=== PATIENT | female | born 1990 | race Caucasian/White ===

== ENCOUNTER 2020-10-09 18:39 | Emergency (ER) | payer OTHER, SELFPAY ==
--- NOTE | ~2020-10-09 | XR_ITS ---
EXAMINATION: XR chest 2V DATE: 10/09/2020 19:03 INDICATION: Left-sided chest pain TECHNIQUE: PA and lateral views of the chest are obtained. COMPARISON: None available FINDINGS: The lungs are free of acute opacities. There is no pleural effusion or pneumothorax. The ca rdiomediastinal silhouette is normal. There is mild thoracic spondylosis. Surgical clips in the right upper quadrant are likely from prior cholecystectomy. IMPRESSION: 1. No acute cardiopulmonary abnormality. Reviewed, dictated and finalized at location A.
[2020-10-09 18:43] VITALS: BP 121/92; PULSE 89; RESP 18; TEMP 36.4; O2SAT 100
--- NOTE | 2020-10-09 18:46 | ECG_ITS ---
Measurements Intervals [place] Rate: 106 P: 34 CT: 133 QRS: 28 QRSD: 84 T: 20 QT: 323 QTc: 430 Interpretive Statements SINUS TACHYCARDIA ABNORMAL ECG Electronically Signed On 10-10-2020 7:11:02 CDT by Brice Lawrence D.O.
--- NOTE | 2020-10-09 19:01 | ED.CHESTPAIN ---
HPI - Chest Pain General Chief Complaint: Chest Pain Stated Complaint: chest and left rib pain Time Seen by Provider: 10/09/20 19:01 History of Present Illness HPI narrative: 30 yo female w/ h/o paroxysmal SVT presents to the ED for chest pain. 4 days of sharp left sided chest pain. Associated with SOB. Reports that she was seen at [facility] and told that she had a collapsed lung and could not be treated there because they do not have cardiologists. She then went to [facility] and told that her lung was not collapsed, but says that they did not address her pain. She was supposed to have an ablation procedure for her SVT, but she did not keep her appointment. He story does not seem to make very much sense. She let me look through her my chart and there is never any mention of a pneumothorax. She had a negative cardiac evaluation. Related Data Allergies Allergy/AdvReac Type Severity Reaction Status Date / Time naproxen Allergy Unknown Verified 10/09/20 20:59 Penicillins Allergy Hives Verified 10/09/20 19:56 Sulfa (Sulfonamide Allergy Hives Verified 10/09/20 19:56 Antibiotics) Review of Systems Review of Systems: All systems reviewed & are unremarkable except as noted in HPI and below Constitutional: Constitutional: Denies fever(s) Eyes: Eyes: Reports no additional eye complaints Cardiovascular: Cardiovascular: Reports chest pain and Denies radiating jaw, neck or arm pain Respiratory: Respiratory: Denies cough and Reports dyspnea Gastrointestinal: Gastrointestinal: Reports no additional gastrointestinal complaints Genitourinary: Genitourinary: Reports no additional female genitourinary complaints Neurologic: Reports dizziness Psychiatric: Psychiatric: Denies anxiety [facility] Past Medical History Medical History (Updated 10/22/20 @ 18:44 by Clinton Costa MD) SVT (supraventricular tachycardia) Exam Const: General: no acute distress and alert Orientation/consciousness: patient oriented x3 HENMT: Head: normal to inspection Neck: Neck: normal visual inspection Chest: Chest palpation & inspection: tenderness pectoral muscle on the left Resp: Effort & Inspection: normal respiratory effort Auscultation: clear to auscultation bilaterally Cardio: Rate: regular rate Rhythm: regular rhythm GI: GI Palp: Yes Soft to palpation and No Tenderness to palpation present (GI) Skin: General skin exam: normal color Neuro: General: patient oriented x3, moves all extremities and no focal motor deficits Speech: normal speech Gait exam (Neuro): Normal gait present Extrem: General: normal to inspection and no edema Course Vital Signs Vital signs: Vital Signs Temperature 36.4 C L 10/09/20 18:43 Pulse Rate 89 10/09/20 18:43 Respiratory Rate 18 10/09/20 18:43 Blood Pressure 121/92 H 10/09/20 18:43 Pulse Oximetry 100 10/09/20 18:43 Temperature 36.4 C L 10/09/20 18:43 Pulse Rate 88 10/09/20 20:21 Respiratory Rate 17 10/09/20 20:21 Blood Pressure 136/93 H 10/09/20 20:21 Pulse Oximetry 100 10/09/20 20:21 MDM - Chest Pain MDM Narrative Medical decision making narrative: She has now had 3 negative cardiac evaluations. She had a normal d-dimer as well. Chest pain seems to be benign in nature. Differential Diagnosis Differential diagnosis: Likely pneumothorax, atypical chest pain, costochondritis and other (PE, NSTEMI) Medical Records Data Attestation: I reviewed the patient's medical records. Lab Data Attestation: I reviewed the patient's lab results. Result diagrams: 10/09/20 18:52 10/09/20 18:52 Labs: Lab Results 10/09/20 10/09/20 10/09/20 Range/Units 18:52 18:52 18:52 WBC 7.3 (4.5-10.0) K/mm3 RBC 4.66 (4.2-5.4) M/mm3 Hgb 14.1 (12.0-15.0) g/dL Hct 41.3 (37.0-47.0) % MCV 88.6 (80-100) fl MCH 30.3 (26-34) pg MCHC 34.1 (32-36) g/dl RDW 13.1 (11.5-14.5) % Plt Count 162 (150-375) k/mm3
[2020-10-09 19:02] LABS: Basophils Percent Auto 0.1 % (0.2-1.2); Eosinophils Absolute Auto 0.5 K/mm3 (0-0.3); Hematocrit 41.3 % (37.0-47.0); Hemoglobin 14.1 g/dL (12.0-15.0); Immature Granulocyte Absolute 0.01 K/mm3 (0.00-0.031); Immature Granulocyte Percent A 0.1 % (0-0.5); Lymphocytes Absolute Auto 1.54 K/mm3 (0.9-3.2); Lymphocytes Percent Auto 21.1 % (18.3-44.2); Mean Corpuscular HGB Conc 34.1 g/dl (32-36); Mean Corpuscular Hemoglobin 30.3 pg (26-34); Mean Corpuscular Volume 88.6 fl (80-100); Mean Platelet Volume 9.6 fl (7.4-10.4); Monocytes Absolute Auto 0.5 K/mm3 (0.1-0.6); Monocytes Percent Auto 6.8 % (2.6-8.5); Neutrophils Absolute Auto 4.7 K/mm3 (1.3-6.7); Neutrophils Percent Auto 64.9 % (45.5-73.1); Platelet Count Result 162 k/mm3 (150-375); Red Blood Count 4.66 M/mm3 (4.2-5.4); Red Cell Distribution Width 13.1 % (11.5-14.5); White Blood Count 7.3 K/mm3 (4.5-10.0)
[2020-10-09 19:13] LABS: INR 0.9; Prothrombin Time 12.3 Seconds (11.1-14.7)
[2020-10-09 19:14] LABS: Partial Thromboplastin Time 28.1 SECONDS (22.3-36.8)
[2020-10-09 19:17] LABS: Anion Gap 3 mmol/L (8-16); Blood Urea Nitrogen 13 mg/dL (7-17); Calcium 9.2 mg/dL (8.4-10.2); Carbon Dioxide 31 mmol/L (22-30); Chloride 106 mmol/L (98-107); Estimated CRCL calculation 69 ml/min; Estimated Glomerular Filt Rate > 60; Glucose 112 mg/dL (65-105); Potassium 4.4 mmol/L (3.4-5.0); Sodium 140 mmol/L (137-145)
[2020-10-09 19:29] LABS: Troponin I < 0.012 ng/mL (0.000-0.034)
[2020-10-09 20:15] LABS: D Dimer 0.38 ug/mL (<0.48)
--- NOTE | 2020-10-09 20:19 | PC.NURSE ---
Per LAVONNE Costa, no aspirin needed.
[2020-10-09 20:21] VITALS: BP 136/93; PULSE 88; RESP 17; O2SAT 100
--- NOTE | 2020-10-09 20:40 | PC.NURSE ---
pt reports pain medication does nothing to alleviate pain. No further pain medications were given per EDP Gerdelman orders, cannot give toradol due to allergy. pt was advised to return if chest pain continued or worsened. pt offered book of PCP, pt refused.
== END 2020-10-09 20:43 | disposition home or self-care (01) ==
PROVIDERS: Emergency Medicine; Emergency Provider Emergency Medicine
DX: R07.89 Other chest pain (principal); R00.0 Tachycardia, unspecified
CPT/HCPCS: 36415; 71046; 80048; 84484; 85025; 85380; 85610; 85730; 93005; 99284

== ENCOUNTER 2020-11-15 12:06 | Emergency (ER) | payer OTHER, SELFPAY ==
--- NOTE | ~2020-11-15 | XR_ITS ---
XR wrist LT 2V DATE: 11/15/2020 12:36 INDICATION: Wrist injury TECHNIQUE: AP and lateral views COMPARISON: None FINDINGS: Anterior plate and screws along the distal radius. There is resection of multiple carpal mustapha gus including the scaphoid and lunate bones. No recent fracture or dislocation is evident. IMPRESSION: Postoperative change of distal radius and carpus; no recent fracture or dislocation is ev ident Reviewed, dictated and finalized at location A. IMPRESSION: Postoperative change of distal radius and carpus; no recent fractur e or dislocation is evident
[2020-11-15 12:28] VITALS: BP 141/106; PULSE 72; RESP 20; TEMP 36.6; O2SAT 98
[2020-11-15] MEDS: KETOROLAC (*BKC) 60 MG/2 ML VIAL IM (12:49)
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
[2020-11-15 13:30] VITALS: BP 125/94; PULSE 75; RESP 20; TEMP 36.7; O2SAT 98
== END 2020-11-15 13:30 | disposition home or self-care (01) ==
PROVIDERS: Emergency Provider Emergency Medicine
DX: M25.532 Pain in left wrist (principal); S63.502A Unspecified sprain of left wrist, initial encounter
CPT/HCPCS: 73100; 73140; 96372; 99283; J1885

== ENCOUNTER 2021-01-21 20:25 | Emergency (ER) | payer OTHER, SELFPAY ==
--- NOTE | ~2021-01-21 | XR_ITS ---
EXAMINATION: XR forearm LT 2V, XR wrist LT min 3V EXAM DATE: 01/21/2021 21:24 (accession [id number]), 01/21/2021 21:25 (accession [id number]) INDICATION: lat wrist pain up elbow after inj. Hx surgeries 2018+2019. TECHNIQUE: Left forearm frontal and lateral projections obtained and reviewed. Left wrist frontal, o blique, lateral projections. There is a prior left wrist examination from 11/15/2020 for comparison. FINDINGS: Left wrist is in a cast. There is a plate along the volar aspect of the radius without evid ence of hardware fracture. There are carpal surgical changes, some bones have been resected, correlat e with surgical history. No acute fracture identified through the cast. The elbow joint is unremarkab le. IMPRESSION: Casted left wrist. Intact radial hardware. Reviewed, dictated and finalized at location G. IMPRESSION: Casted left wrist. Intact radial hardware.
[2021-01-21 20:49] VITALS: BP 125/100; PULSE 130; RESP 20; TEMP 36.6; O2SAT 100
[2021-01-21] MEDS: HYDROcodone/acetaminophen (*CRX) 5-325 MG TABLET 2 TAB PO (21:16)
[2021-01-21] MEDS: KETOROLAC (*BKC) 60 MG/2 ML VIAL IM (21:16)
[2021-01-21] MEDS: ONDANSETRON HCL ODT 4 MG TABLET PO (21:16)
--- NOTE | 2021-01-21 21:38 | ED.UPPEXIN ---
HPI - Extremity Injury (Upper) General Chief Complaint: Extremity Injury, Upper Stated Complaint: wrist pain, fingers numb Time Seen by Provider: 01/21/21 20:55 Source: patient Mode of arrival: ambulatory Limitations: no limitations History of Present Illness HPI narrative: Patient comes in with a cast on her left wrist. She tells me she had this placed, because she has hardware in her wrist due to a fracture, and that hardware has been loose enough it has now given full healing. Tonight she was doing something at work at her job and something hit the cast forcefully. She comes in with acute pain to the wrist, and is worried she has reinjured her wrist again. Pain is moderately severe, and sharp, in the left wrist, has been ongoing for the past hour since the accident, and has no let up. This is associated with severe anxiety she is having related to the accident, and trouble she has had with the wrist. Nothing at home has decreased the pain. MD complaint: injury to: left, forearm and wrist Other injuries: none Handedness: right Place: home and work Severity: severe Relieving factors: immobilization Exacerbating factors: movement of extremity Context: direct blow Associated symptoms: denies other symptoms Treatments prior to arrival: NSAIDS Related Data Home Medications Medication Instructions Recorded Confirmed tramadol 50 mg PO PRN 01/21/21 01/21/21 Allergies Allergy/AdvReac Type Severity Reaction Status Date / Time naproxen Allergy Unknown Verified 11/26/20 08:12 Penicillins Allergy Hives Verified 11/26/20 08:12 Sulfa (Sulfonamide Allergy Hives Verified 11/26/20 08:12 Antibiotics) Review of Systems Constitutional: Constitutional: Reports no additional constitutional complaints Eyes: Eyes: Reports no additional eye complaints ENT: Reports system reviewed and no additional complaints, except as documented Respiratory: Respiratory: Reports no additional respiratory complaints Gastrointestinal: Gastrointestinal: Reports no additional gastrointestinal complaints Genitourinary: Genitourinary: Reports no additional female genitourinary complaints Musculoskeletal: Musculoskeletal: Reports no additional musculoskeletal complaints Integumentary/Breasts: Skin/Breast: Reports system reviewed and no additional complaints, except as docu Neurologic: Reports system reviewed and no additional complaints, except as documented Psychiatric: Psychiatric: Reports anxiety Endocrine: Endocrine: Reports no additional endocrine complaints Hematologic/Lymphatic: Hematologic/Lymphatic: Reports no additional hematologic/lymphatic complaints Allergic/Immunologic: Allergic/Immunologic: Reports no additional allergic/immunologic complaints PMF Past Medical History Medical History Anxiety Benign hypertension Cervical endometriosis Depression Kienbock's disease PCOS (polycystic ovarian syndrome) PTSD (post-traumatic stress disorder) SVT (supraventricular tachycardia) Surgical History Surgical History H/O left wrist surgery H/O total hysterectomy History of cholecystectomy History of removal of ovarian cyst Family History Family History Other No significant family history Social History Social History Smoking status: Never smoker Alcohol intake: current Alcohol use details: social Substance use: never Substance use type: does not use Additional living arrangements comments: Boyfriend Additional occupation/education comments: EMT Gender identity (if verbalized by the patient): Female Exam Const: General: alert Orientation/consciousness: patient oriented x3 Other: anxious HENMT: Head: normal to inspection Ears: external ears normal General nose exam: Normal external
[2021-01-21 21:45] VITALS: BP 132/91; PULSE 100; RESP 20; TEMP 36.2; O2SAT 99
== END 2021-01-21 21:48 | disposition home or self-care (01) ==
PROVIDERS: Emergency Provider Emergency Medicine; PCP Nurse Practitioner Family
DX: M25.532 Pain in left wrist (principal)
CPT/HCPCS: 73090; 73110; 96372; 99283; A9270; J1885

== ENCOUNTER 2021-02-16 12:16 | Emergency (ER) | payer OTHER, SELFPAY ==
[2021-02-16] VITALS (10 sets, daily range): BP systolic 94–112; BP diastolic 57–76; PULSE 57–89; RESP 18–20; TEMP 35.9–36.6; O2SAT 96–100
--- NOTE | ~2021-02-16 | CT_ITS ---
EXAMINATION: CTA chest PE abdomen pel DATE: 02/16/2021 21:13 INDICATION: Left chest tightness, shortness of breath. Nausea and vomiting. TECHNIQUE: Computed tomography angiography (CTA) of the chest was performed with 100 mL Omnipaque-350 intravenous contrast timed to evaluate the pulmonary arteries. Coronal maximum intensity projection 3D-reconstructions were created by the technologist. Automated exposure control and iterative reconst ruction technique were employed. Exam dose: 1858.54 mGy-cm total exam DLP. COMPARISON: 02/16/2021 PA and lateral chest FINDINGS: There is no evidence of thoracic aortic aneurysm or dissection. Normal heart size. No hilar or mediastinal mass lesion or lymphadenopathy. There is a bilobed 7.9 x 14.5 mm partially calcified opacity in the anterior basilar segment of the r ight lower lobe. Alternatively, this might be 2 contiguous lesions. There is prominent central calcif ication within the larger of the 2 adjacent lobes. Findings may be due to old pulmonary granulomato us disease. [address] is recommended to exclude any interval enlargement. No pulmonary infiltrate or consolidation or pulmonary mass lesion is noted otherwise. There is diffuse hepatic steatosis. Status post cholecystectomy. No bile duct or pancreatic duct dilatation. No pancreatic mass lesion or calcification. Normal splenic size. Normal morphology of the adrenal glands. Approximately 5.7 mm upper pole probable left renal cyst. Approximately 4.3 mm posterior mid left renal cyst. No urinary tract calculus or hydroureteronephrosis. Normal caliber of the abdominal aorta. No intraperitoneal or retroperitoneal or pelvic mass lesion or adenopathy or ascites. The urinary bladder is unremarkable. Status post hysterectomy. No bowel obstruction, bowel wall thickening, pneumatosis or intraperitoneal free air. Very small fat-containing umbilical hernia. Included skeletal structures are unremarkable; no suspicious osteolytic or osteoblastic lesions. IMPRESSION: 7.9 x 14.5 mm bilobed opacity in the anterior basilar segment of the right lower lobe wi th some calcification. This may be secondary to granulomatous disease. However, six-month follow-up C T examination is recommended to exclude malignancy at the noncalcified component. Diffuse hepatic steatosis Status post cholecystectomy Status post hysterectomy. Small left renal cyst Reviewed, dictated and finalized at Location A. Reviewed, dictated and finalized at location A. IMPRESSION: 7.9 x 14.5 mm bilobed opacity in the anterior basilar segment of t he right lower lobe with some calcification. This may be secondary to granuloma tous disease. However, six-month follow-up CT examination is recommended to exc lude malignancy at the noncalcified component. Diffuse hepatic steatosis Status post cholecystectomy Status post hysterectomy. Small left renal cyst
--- NOTE | ~2021-02-16 | XR_ITS ---
EXAMINATION: XR chest 2V DATE: 02/16/2021 13:04 INDICATION: Chest tightness. Syncope. TECHNIQUE: Frontal and lateral views of the chest were obtained. COMPARISON: Chest 2 views 10/09/2020 FINDINGS: The chest demonstrates clear lungs without pneumonia, pleural effusion, or pneumothorax. Th e heart size is normal. Surgical clips in the right upper quadrant are likely from cholecystectomy. IMPRESSION: 1. No acute cardiopulmonary disease. Reviewed, dictated and finalized at location B.
--- NOTE | 2021-02-16 12:26 | ECG_ITS ---
Measurements Intervals [place] Rate: 58 P: 28 [place]: 123 QRS: 44 QRSD: 97 T: 49 QT: 386 QTc: 382 Interpretive Statements SINUS BRADYCARDIA DELAYED PRECORDIAL R/S TRANSITION BORDERLINE ECG Electronically Signed On 02-16-2021 14:31:08 CDT by Brice Lawrence D.O.
--- NOTE | 2021-02-16 12:41 | ED.CHESTPAIN ---
HPI - Chest Pain General Chief Complaint: Chest Pain Stated Complaint: Syncope/chest tightness Time Seen by Provider: 02/16/21 12:41 Source: patient Mode of arrival: ambulatory Limitations: no limitations History of Present Illness HPI narrative: 31-year-old woman with a history of SVT comes the emergency department complaining of central chest pain worse with a deep breath this started yesterday morning. Patient states that since this started she has had 3 episodes where she passed out, losing consciousness. She began having shortness of breath today and weakness today. She also states that since yesterday morning she has had nausea and vomiting every time she tries to eat. She states that she has seen Dr. White, a foreclosure field inspector in [place] for similar symptoms. She denies history of stress test or heart catheterization. She denies palpitations, fever, chills, cold symptoms, sore throat, cough, abdominal pain, dysuria, and calf pain. MD complaint: chest discomfort (Tightness) Pertinent past history: other (SVT) Onset (ago): day(s) (2) Timing of current episode: constant Prior episodes: Yes Onset: during rest Pain location: substernal Pain radiation: none Severity: moderate Quality: tightness Relieving factors: nothing Exacerbating factors: inspiration Associated symptoms: nausea, vomiting, diaphoresis, dyspnea and syncope Treatment prior to arrival: aspirin (4 baby aspirin) Related Data On Oral Contraceptives: No Home Medications Medication Instructions Recorded Confirmed lamotrigine 25 mg tablet 50 mg PO DAILY tablet 02/09/21 02/16/21 prazosin 1 mg capsule 2 mg PO BID cap 02/09/21 02/16/21 Allergies Allergy/AdvReac Type Severity Reaction Status Date / Time naproxen Allergy Unknown Verified 02/09/21 07:51 Penicillins Allergy Hives Verified 02/09/21 07:51 Sulfa (Sulfonamide Allergy Hives Verified 02/09/21 07:51 Antibiotics) Review of Systems Review of Systems: All systems reviewed & are unremarkable except as noted in HPI and below Constitutional: Constitutional: Denies chills, Denies fever(s) and Reports weakness Eyes: Eyes: Denies change in vision and Denies photophobia ENT: Denies nasal congestion and Denies sore throat Cardiovascular: Cardiovascular: Reports chest pain, Denies rapid heart rate, Denies radiating jaw, neck or arm pain and Denies slow heart rate Respiratory: Respiratory: Denies cough and Reports dyspnea Gastrointestinal: Gastrointestinal: Denies abdominal pain, Denies diarrhea, Reports nausea and Reports vomiting Genitourinary: Genitourinary: Reports nocturia and Denies dysuria Musculoskeletal: Musculoskeletal: Denies back pain, Denies arthralgias and Denies joint swelling Integumentary/Breasts: Skin/Breast: Denies pruritus, Denies erythema and Denies rash Neurologic: Denies vertigo, Denies dizziness, Reports syncope, Denies headache(s), Denies focal weakness and Denies numbness Hematologic/Lymphatic: Hematologic/Lymphatic: Denies easy bleeding and Denies easy bruising Allergic/Immunologic: Allergic/Immunologic: Denies lip swelling, Denies throat swelling and Denies tongue swelling [facility] Past Medical History Medical History (Updated 02/16/21 @ 18:04 by Alex Garcia MD) Anxiety Benign hypertension Cervical endometriosis Depression Kienbock's disease PCOS (polycystic ovarian syndrome) PTSD (post-traumatic stress disorder) Sinus tachycardia SVT (supraventricular tachycardia) Surgical History Surgical History H/O left wrist surgery H/O total hysterectomy History of cholecystectomy History of removal of ovarian cyst Family History Family History Other No significant family history Social History Social History Smoking status: Never smoker Alcohol intake: current Alcohol use details: soci
[2021-02-16] MEDS: ONDANSETRON INJ 4 MG/2 ML VIAL IV PUSH (12:53)
[2021-02-16 12:54] LABS: Basophils Absolute Auto 0.03 K/mm3 (0.00-0.10); Basophils Percent Auto 0.5 % (0.0-1.0); Eosinophils Absolute Auto 0.13 K/mm3 (0.02-0.50); Eosinophils Percent Auto 2.3 % (1.0-6.0); Hematocrit 39.6 % (35.0-49.0); Hemoglobin 13.5 g/dL (12.0-15.0); Immature Granulocyte Absolute 0.02 K/mm3 (0.00-0.00); Immature Granulocyte Percent A 0.4 % (0.0-0.0); Lymphocytes Absolute Auto 1.82 K/mm3 (1.10-4.50); Lymphocytes Percent Auto 32.2 % (18.0-42.0); Mean Corpuscular HGB Conc 34.1 g/dL (32.0-36.0); Mean Corpuscular Hemoglobin 30.3 pg (27.0-31.0); Mean Corpuscular Volume 88.8 fL (78.0-102.0); Mean Platelet Volume 9.7 fl (9.2-11.8); Monocytes Absolute Auto 0.45 K/mm3 (0.10-0.90); Neutrophils Absolute Auto 3.2 K/mm3 (1.7-7.2); Neutrophils Percent Auto 56.6 % (50.0-70.0); Platelet Count Result 160 K/mm3 (150-420); Red Blood Count 4.46 M/mm3 (4.20-5.40); Red Cell Distribution Width 12.9 % (11.6-14.4); White Blood Count 5.7 K/mm3 (4.8-10.8)
[2021-02-16] MEDS: PANTOPRAZOLE SODIUM IV 40 MG VIAL IV PUSH (12:55)
[2021-02-16 13:11] LABS: Add Urine Microscopic? NO; Appearance Urine Clear (Clear); Bilirubin Urine Negative (Negative); Blood Urine Negative (Negative); Color Urine Light Yellow (Yellow); Glucose Urine UA Negative (Negative); Ketones Urine Negative (Negative); Leukocyte Esterase Ur Negative LEU/UL (Negative); Nitrate Urine Negative (Negative); Protein Urine Negative (Negative); Specific Grav Ur >= 1.030 (1.010-1.020); Urobilinogen Urine 0.2 mg/dL (0.2-1.0); pH Urine 5.5 (5.0-8.0)
[2021-02-16 13:14] LABS: Alanine Aminotransferase 101 U/L (14-59); Albumin Level 3.4 g/dL (3.4-5.0); Alkaline Phosphatase 85 U/L (46-116); Anion Gap 14 mmol/L (8-16); Aspartate Amino Transferase 66 U/L (15-37); Bilirubin,Total 0.3 mg/dL (0.00-1.00); Blood Urea Nitrogen 10 mg/dL (7-18); Calcium 8.6 mg/dL (8.5-10.1); Carbon Dioxide 22 mmol/L (21-32); Chloride 106 mmol/L (98-108); Estimated CRCL calculation 63 ml/min; Estimated Glomerular Filt Rate 58; Glucose 165 mg/dL (70-99); Osmolality Calculated 297 mOsm/kg (285-295); Potassium 3.6 mmol/L (3.5-5.1); Sodium 142 mmol/L (136-145); Total Protein 6.9 g/dL (6.4-8.2); Troponin I < 4.0 ng/L (0.00-60.4)
[2021-02-16 13:20] LABS: D Dimer < 0.19 mg/L (0.19-0.50)
[2021-02-16 13:25] LABS: Amphetamine Screen Urine Negative (Negative); Barbiturate Screen Urine Negative (Negative); Benzodiazepines Screen Urine Negative (Negative); Cannabinoid Screen Urine Negative (Negative); Cocaine Screen Urine Negative (Negative); Methadone Screen Urine Negative (Negative); Opiate Screen Urine Negative (Negative); Phencyclidine Screen Urine Negative (Negative)
[2021-02-16] MEDS: SODIUM CHLORIDE 0.9% IV 1,000 ML 999 ML IV CONT ×3 (13:43→20:10)
--- NOTE | 2021-02-16 15:01 | PC.NURSE ---
PT UP TO BATHROOM PER WHEELCHAIR. CONTINUE TO COMPLAIN ABOUT CHEST DISCOMFORT. DR NINO NOTIFIED AND AWARE.
--- NOTE | 2021-02-16 15:22 | PC.NURSE ---
PT RESTING PER COT. CONTINUE TO AWAIT CALL FROM DR QUEZADA FROM [facility]
--- NOTE | 2021-02-16 15:52 | PC.NURSE ---
PER DR NINO , PT REPORTED 3 SYNCOPAL EPISODES YESTERDAY TO HIM.
--- NOTE | 2021-02-16 15:55 | PC.NURSE ---
PT RESTING PER COT. BOYFRIEND AT BEDSIDE. CALL ROMERO IN REACH. NO COMPLAINTS OR NEEDS VOICED.
[2021-02-16 16:38] LABS: Troponin I < 4.0 ng/L (0.00-60.4)
[2021-02-16 16:53] LABS: SARS-CoV-2 Ag Negative (Negative)
--- NOTE | 2021-02-16 17:26 | PC.NURSE ---
with patient reviewing plan of care from Dr White
--- NOTE | 2021-02-16 17:39 | PC.NURSE ---
significant other at desk asking about food & drinks for patient, states her b/p so low she can't go home like that. Explained b/p numbers but we have a call to Dr Wei due to their request for admission
--- NOTE | 2021-02-16 18:42 | PC.NURSE ---
report to KELLEN Martinez, to room via wheelchair
--- NOTE | 2021-02-16 18:48 | PC.NURSE ---
Patient admitted to room 205 for ED hold with spouse at bedside. Patient has been made comfortably and acquainted to the room and dinner ordered. No c/o pain or SOB at this time.
[2021-02-16 18:51] LABS: Pregnancy On Board Control Positive; Urine Pregnancy Test Negative
[2021-02-16] MEDS: atenoloL 25 MG TABLET PO (19:13)
[2021-02-16] MEDS: PRAZOSIN HCL 1 MG CAPSULE 2 MG PO (19:13)
--- NOTE | 2021-02-16 19:50 | PC.NURSE ---
Entered patient's room and found patient tearful and flushed. Patient complaining of chest pain rated @ 9 to middle of chest and radiating around to the right to her back. VSS. Call light in reach.
--- NOTE | 2021-02-16 19:55 | PC.NURSE ---
Dr Garcia notified of patient's complaint of chest pain. is putting orders in and then will come up to see patient.
--- NOTE | 2021-02-16 20:00 | PC.NURSE ---
Dr Garcia in to see patient.
--- NOTE | 2021-02-16 20:07 | ECG_ITS ---
Measurements Intervals [place] Rate: 76 P: 10 MO: 125 QRS: 19 QRSD: 83 T: 16 QT: 372 QTc: 418 Interpretive Statements SINUS RHYTHM LOW QRS VOLTAGE IN PRECORDIAL LEADS BASELINE WANDER- II, III, AVL, AVF, V1, V6 BORDERLINE ECG Electronically Signed On 02-17-2021 8:43:38 CDT by Brice Lawrence D.O.
[2021-02-16] MEDS: HYDROmorphone HCL INJ (*CRX) 2 MG/ML VIAL 0.5 MG IV PUSH (20:31)
--- NOTE | 2021-02-16 20:31 | PC.NURSE ---
Dilaudid given for chest pain @ 9.
--- NOTE | 2021-02-16 20:52 | PC.NURSE ---
Patient off floor going to radiology for CT.
--- NOTE | 2021-02-16 21:20 | PC.NURSE ---
Patient returned to room. Patient reports chest pain level is now down to a 2.
--- NOTE | 2021-02-16 21:25 | PC.NURSE ---
Labs drawn per tech.
[2021-02-16] MEDS: AMITRIPTYLINE HCL 25 MG TABLET PO (21:27)
[2021-02-16 21:52] LABS: Troponin I 4.3 ng/L (0.00-60.4)
[2021-02-16 21:53] LABS: Lactic Acid Reflex 0.8 mmol/L (0.4-2.0)
[2021-02-16] MEDS: SODIUM CHLORIDE 0.9% IV 1,000 ML 200 ML IV CONT (21:57)
--- NOTE | 2021-02-16 22:00 | PC.NURSE ---
Dr Garcia in to talk to patient about all her test results.
--- NOTE | 2021-02-16 22:30 | PC.NURSE ---
Patient resting well. Reports chest pain still @ 2. IV fluids infusing to site in right hand without difficulty. No distress noted. Call light in reach.
--- NOTE | 2021-02-16 22:40 | PC.NURSE ---
Addendum entered by Lelo Mckay RN 02/16/21 22:56: time change to 1949 Original Note: Entered patient's room and patient is tearful and fluse
[2021-02-17] VITALS (7 sets, daily range): BP systolic 93–134; BP diastolic 54–64; PULSE 55–77; RESP 18–20; TEMP 36.1–36.9; O2SAT 94–97
--- NOTE | 2021-02-17 | PC.NURSE ---
Patient awakened as nurse entered room. Patient now reports chest pain as being a 2 and it is no longer radiating to her right side. IV fluids infusing without difficulty to site in right hand. Patient ambulated to/from bathroom with stand by assist with steady gait and patient denies dizziness, being light headed, shortness of breath. No distress noted. Call light in reach.
--- NOTE | 2021-02-17 01:43 | PC.NURSE ---
Lelo from [facility] called for update on patient.
--- NOTE | 2021-02-17 02:25 | PC.NURSE ---
Patient appears to be sleeping by the rise and fall of her chest. Respirations even and unlabored. IV fluids infusing without difficulty to site in right hand. No distress noted. Call light in reach.
[2021-02-17] MEDS: SODIUM CHLORIDE 0.9% IV 1,000 ML 200 ML IV CONT (02:49)
[2021-02-17 05:19] LABS: Basophils Absolute Auto 0.04 K/mm3 (0.00-0.10); Basophils Percent Auto 0.7 % (0.0-1.0); Eosinophils Absolute Auto 0.14 K/mm3 (0.02-0.50); Eosinophils Percent Auto 2.6 % (1.0-6.0); Hematocrit 37.3 % (35.0-49.0); Hemoglobin 12.6 g/dL (12.0-15.0); Immature Granulocyte Absolute 0.02 K/mm3 (0.00-0.00); Immature Granulocyte Percent A 0.4 % (0.0-0.0); Lymphocytes Absolute Auto 1.95 K/mm3 (1.10-4.50); Lymphocytes Percent Auto 35.8 % (18.0-42.0); Mean Corpuscular HGB Conc 33.8 g/dL (32.0-36.0); Mean Corpuscular Hemoglobin 30.8 pg (27.0-31.0); Mean Corpuscular Volume 91.2 fL (78.0-102.0); Mean Platelet Volume 9.5 fl (9.2-11.8); Monocytes Absolute Auto 0.56 K/mm3 (0.10-0.90); Monocytes Percent Auto 10.3 % (2.0-11.0); Neutrophils Absolute Auto 2.7 K/mm3 (1.7-7.2); Neutrophils Percent Auto 50.2 % (50.0-70.0); Platelet Count Result 147 K/mm3 (150-420); Red Blood Count 4.09 M/mm3 (4.20-5.40); Red Cell Distribution Width 13.1 % (11.6-14.4); White Blood Count 5.4 K/mm3 (4.8-10.8)
[2021-02-17 05:37] LABS: Alanine Aminotransferase 92 U/L (14-59); Alkaline Phosphatase 81 U/L (46-116); Anion Gap 8 mmol/L (8-16); Aspartate Amino Transferase 53 U/L (15-37); Bilirubin,Total 0.2 mg/dL (0.00-1.00); Blood Urea Nitrogen 8 mg/dL (7-18); Calcium 8.1 mg/dL (8.5-10.1); Carbon Dioxide 26 mmol/L (21-32); Chloride 111 mmol/L (98-108); Estimated CRCL calculation 76 ml/min; Estimated Glomerular Filt Rate > 60; Glucose 104 mg/dL (70-99); Osmolality Calculated 298 mOsm/kg (285-295); Potassium 4.1 mmol/L (3.5-5.1); Sodium 145 mmol/L (136-145); Total Protein 6.3 g/dL (6.4-8.2); Troponin I 4.8 ng/L (0.00-60.4)
--- NOTE | 2021-02-17 06:36 | PC.NURSE ---
Patient called nurse to room saying her right hand is swollen where her IV is. Right arm noted to be edematous and site does not flush. Accessed removed with catheter intact. Patient tolerated well.
--- NOTE | 2021-02-17 07:10 | PC.NURSE ---
Bedside report completed and board updated. Patient is sleeping comfortably.
--- NOTE | 2021-02-17 07:23 | PC.NURSE ---
Tan from placed a 20 gauge peripheral IV on the AC of the left arm @0720.
--- NOTE | 2021-02-17 08:59 | PC.NURSE ---
Dr Silva contacted regarding patient complaint of chest pain, EKG ordered and troponin ordered
--- NOTE | 2021-02-17 09:14 | ECG_ITS ---
Measurements Intervals [place] Rate: 61 P: 13 [place]: 121 QRS: 40 QRSD: 89 T: -1 QT: 393 QTc: 396 Interpretive Statements SINUS RHYTHM CONSIDER INFERIOR INFARCT, AGE INDETERMINATE ABNORMAL ECG Electronically Signed On 02-17-2021 9:45:39 CDT by Brice Lawrence D.O.
[2021-02-17] MEDS: PRAZOSIN HCL 1 MG CAPSULE 2 MG PO ×2 (09:15→17:06)
[2021-02-17] MEDS: atenoloL 25 MG TABLET PO ×2 (09:16→17:06)
[2021-02-17] MEDS: ESCITALOPRAM OXALATE 10 MG TABLET PO (09:16)
[2021-02-17] MEDS: lamoTRIgine 25 MG TABLET 50 MG PO (09:17)
[2021-02-17] MEDS: HYDROmorphone HCL INJ (*CRX) 2 MG/ML VIAL 0.5 MG IV PUSH ×4 (09:31→21:31)
--- NOTE | 2021-02-17 09:39 | PC.NURSE ---
Patient ate approxiametly 80% of her breakfast, and drank 240 mL. Patient is c/o pain of 8/10 in chest. was notified, ECG was negative, and pain medication was given.
[2021-02-17 09:42] LABS: Troponin I 4.2 ng/L (0.00-60.4)
--- NOTE | 2021-02-17 12:26 | PC.NURSE ---
Patient reported small amount of emesis in bathroom trash can. Zofran IV push given for N/V.
[2021-02-17] MEDS: ONDANSETRON INJ 4 MG/2 ML VIAL IV PUSH ×2 (12:30→18:18)
--- NOTE | 2021-02-17 12:40 | PC.NURSE ---
To access line up dated on patient condition, no beds at this time
[2021-02-17] MEDS: SODIUM CHLORIDE 0.9% IV 500 ML IV CONT (14:58)
--- NOTE | 2021-02-17 16:20 | PC.NURSE ---
1600-- VS 96.5 - 16 -77 - 103/52 - 95%. IV 20 gauge in left upper arm, flushing with ease. Dressing dry and intact. Patient complained of left sided chest pain. Pain radiating across her chest. Denies any SOB. No complaints of nausea or vomiting. No edema noted. Rated pain 4 out of 10. Heart rate regular. Alert and oriented x 3. Patient up independently with standby assist. Patient continues with telemetry --sinus rhythm. Denies any dizziness or lightheadedness. --Jessica Muro RN
[2021-02-17] MEDS: PANTOPRAZOLE SODIUM IV 40 MG VIAL IV PUSH (17:06)
--- NOTE | 2021-02-17 17:41 | PC.NURSE ---
pt attempted to eat some baked potato, afterward had episode of emesis into trash can, unable to give more zofran until 183, pt is aware, amb back to bed
--- NOTE | 2021-02-17 17:55 | PC.NURSE ---
1700 Patient up to bathroom without difficulty. Standby assistance provided. --Jessica Muro RN [id number]--Dialudid 0.5mg given for chest pain. Patient rated pain 12/11. 1730--Patient attempted to eat dinner. She was able to eat a baked potato. She then had 1 emesis in the trash can. Patient assisted back to bed. Currently resting in bed. No further emesis. --Jessica Muro RN
--- NOTE | 2021-02-17 18:23 | PC.NURSE ---
1819--Patient continues to complain of nausea. Zofran 4mg given IVP. Patient tolerated well. Patient reports that she has had nausea and vomiting intermittently for over a year. Patient states she was suppose to have an upper GI and colostomy prior to moving to the area but did not have it done. Patient also states her pain level is better. Rates her pain 2 out of 10. --Jessica Muro RN
--- NOTE | 2021-02-17 18:58 | PC.NURSE ---
1849--Patient is resting in bed at this time. --Jessica Muro RN
--- NOTE | 2021-02-17 20:40 | PC.NURSE ---
Patient A/O x4. C/o chest tightness and PRN pain medication given IV. Patient able to ambulate with SBA. Continue to monitor VS and neuro status. Continue to wait for open bed at [facility].
[2021-02-17] MEDS: AMITRIPTYLINE HCL 25 MG TABLET PO (21:31)
--- NOTE | 2021-02-18 00:37 | PC.NURSE ---
Patient A/O x4. Ambulates with SBA. Continues with vitals Q4 and neuros Q4. Patient c/o pain, better from previous assessment. Continue to monitor.
[2021-02-18 00:39] VITALS: BP 109/65; PULSE 68; RESP 18; TEMP 36; O2SAT 96
--- NOTE | 2021-02-18 00:50 | PC.NURSE ---
received call from utilization specialist at [facility], [id number], [facility] stating patient's bed available for transfer. Hotel Services Sales Representative spoke with patient and informed wrapper off.
--- NOTE | 2021-02-18 01:15 | PC.NURSE ---
[facility] requested for transfer. No rig available.
--- NOTE | 2021-02-18 01:22 | PC.NURSE ---
Multi Spindle Operator called [facility] with report on patient. Spoke with KELLEN Olson, report given. Will notify when patient leaves current hospital.
--- NOTE | 2021-02-18 01:23 | PC.NURSE ---
[facility] notified for transfer.
--- NOTE | 2021-02-18 01:51 | PC.NURSE ---
Patient left with facility via ambulance on stretcher for [facility]. Assayer called hospital and informed nurse that patient left facility at 0150.
[2021-02-18 01:53] VITALS: BP 109/65; PULSE 68; RESP 18; TEMP 36; O2SAT 96
== END 2021-02-18 01:50 | disposition short-term general hospital (02) ==
LOC: CHSED 12:30 → CHS2ND 17:55
PROVIDERS: Emergency Medicine; Emergency Provider Emergency Medicine; PCP Nurse Practitioner Family
DX: R55 Syncope and collapse (principal); R07.9 Chest pain, unspecified
CPT/HCPCS: 36415; 71046; 71275; 74177; 80053; 80307; 81003; 81025; 83605; 84484; 85025; 85380; 87040; 87426; 93005; 96361; 96374; 96375; 96376; 99285; A9270; C9113; C9803; J1170; J2405; J7030; J7040; Q9967

== ENCOUNTER 2021-03-23 13:31 | Outpatient (CLI) | payer OTHER, SELFPAY ==
--- NOTE | ~2021-03-23 | CT_ITS ---
EXAMINATION: CT abdomen pelvis w con EXAM DATE: 03/23/2021 14:56 INDICATION: R11.2 - Nausea with vomiting, unspecified N/V/D, left lower quadrant, left flank pain. TECHNIQUE: Spiral CT of the abdomen and pelvis was performed following intravenous injection of 100 m L Omnipaque 350. Axial, coronal and sagittal images of the abdomen and pelvis were reviewed. The do se-length product (DLP) for this examination was 882.66 mGy-cm. The exposure was tailored according to patient size (auto mA exposure control), and iterative reconstruction (ASIR) was used as additiona l dose reduction technique. Comparison is made to prior examination from 02/16/2021. FINDINGS: There is hepatic steatosis without suspicious focal lesion identified. Spleen, adrenal glan ds, pancreas are unremarkable. There are cholecystectomy clips. Portal and splenic veins are patent . Kidneys enhance symmetrically. There is no hydronephrosis. The uterus is not identified and has likely been surgically resected. The bladder is unremarkable. There is no retroperitoneal or pelvi c lymphadenopathy. The appendix is normal. The stomach and small bowel are unremarkable. There is expected amount of c olonic stool. No free intraperitoneal gas. The heart is normal in size. There are no pericardial or pleural effusions. No change in the right lower lobe lobulated nodule with calcification likely granuloma. This region measures about 1.3 cm. There are no osteoblastic or osteolytic lesions identi fied. IMPRESSION: 1. No acute intra-abdominal findings. Reviewed, dictated and finalized at location B.
[2021-03-23 14:37] LABS: Estimated Glomerular Filt Rate > 60
== END 2021-03-23 13:32 | disposition home or self-care (01) ==
LOC: CHSIMG 13:33
PROVIDERS: PCP Nurse Practitioner Family; Visit Provider Nurse Practitioner Family
DX: R11.2 Nausea with vomiting, unspecified (principal); R10.32 Left lower quadrant pain; R10.11 Right upper quadrant pain
CPT/HCPCS: 74177; Q9967

== ENCOUNTER 2021-03-24 11:17 | Outpatient (CLI) | payer OTHER, SELFPAY ==
[2021-03-24 12:19] LABS: SARS-CoV-2 RNA PCR Negative (Negative)
== END 2021-03-24 11:18 | disposition home or self-care (01) ==
LOC: CHSLAB 11:20
PROVIDERS: PCP Nurse Practitioner Family; Visit Provider Nurse Practitioner Family
DX: R50.9 Fever, unspecified (principal); Z20.822 Contact with and (suspected) exposure to COVID-19
CPT/HCPCS: C9803; U0003; U0005

== ENCOUNTER 2021-05-11 17:06 | Emergency (ER) | payer OTHER, SELFPAY ==
--- NOTE | 2021-05-11 17:40 | ED.GENADULT ---
HPI - General Adult General Chief complaint: Unspecified Stated complaint: swelling in hands,legs,feet Time Seen by Provider: 05/11/21 17:40 Source: patient Mode of arrival: ambulatory Limitations: no limitations History of Present Illness HPI narrative: 31-year-old woman with a history of SVT, provoked upper extremity DVT, and non alcoholic steatohepatitis comes the emergency room complaining of swelling in her lower legs and in her hands over the last 2 days. Patient states that she has had no shortness of breath, chest pain, nausea, vomiting, change in medications, or change in urine output. She had a echo stress test that was negative in the last 3 months. Her PCP was concerned about DVT. MD complaint: Swelling arms legs Onset (ago): day(s) (2) Location: upper extremity (Hands feel tight) and lower extremity (Ankles and feet feel tight.) Severity: moderate Quality: other (As above) Pain Consistency: constant Relieving factors: none Exacerbating factors: none Associated symptoms: denies other symptoms Treatments prior to arrival: none Related Data Home Medications Medication Instructions Recorded Confirmed prazosin 1 mg capsule 1 mg PO BID cap 05/04/21 05/11/21 atenolol 25 mg PO DAILY 05/11/21 05/11/21 dicyclomine 10 mg PO QID PRN 05/11/21 05/11/21 pantoprazole 40 mg PO DAILY 05/11/21 05/11/21 trazodone 150 mg PO HS PRN 05/11/21 05/11/21 Allergies Allergy/AdvReac Type Severity Reaction Status Date / Time naproxen Allergy Unknown Verified 05/11/21 17:46 Penicillins Allergy Hives Verified 05/11/21 17:46 Sulfa (Sulfonamide Allergy Hives Verified 05/11/21 17:46 Antibiotics) Review of Systems Review of Systems: All systems reviewed & are unremarkable except as noted in HPI and below Constitutional: Constitutional: Denies chills and Denies fever(s) Eyes: Eyes: Denies change in vision and Denies photophobia ENT: Denies nasal congestion and Denies sore throat Cardiovascular: Cardiovascular: Denies chest pain, Denies rapid heart rate and Denies radiating jaw, neck or arm pain Respiratory: Respiratory: Denies cough, Denies dyspnea and Denies wheezing Gastrointestinal: Gastrointestinal: Denies abdominal pain, Denies diarrhea, Denies nausea and Denies vomiting Genitourinary: Genitourinary: Denies hematuria, Denies nocturia and Denies dysuria Musculoskeletal: Musculoskeletal: Denies back pain, Denies arthralgias and Denies joint swelling Integumentary/Breasts: Skin/Breast: Denies pruritus, Denies erythema and Denies rash Neurologic: Denies vertigo, Denies dizziness, Denies syncope and Denies numbness Endocrine: Endocrine: Denies polyuria Hematologic/Lymphatic: Hematologic/Lymphatic: Denies easy bleeding and Denies easy bruising Allergic/Immunologic: Allergic/Immunologic: Denies lip swelling and Denies throat swelling PMFSH Past Medical History Medical History Acute wrist pain Anxiety Benign hypertension Cervical endometriosis Depression Kienbock's disease Left wrist pain PCOS (polycystic ovarian syndrome) PTSD (post-traumatic stress disorder) Sinus tachycardia Skin lesion SVT (supraventricular tachycardia) Surgical History Surgical History H/O left wrist surgery H/O total hysterectomy History of cholecystectomy History of removal of ovarian cyst Family History Family History Other No significant family history Social History Social History Smoking status: Never smoker Alcohol intake: current Alcohol use details: social Substance use: never Substance use type: does not use Additional living arrangements comments: Boyfriend Additional occupation/education comments: EMT Gender identity (if verbalized by the patient): Female Exam Const:
[2021-05-11 17:41] VITALS: BP 114/82; PULSE 84; RESP 20; TEMP 36.5; O2SAT 98
--- NOTE | 2021-05-11 17:41 | ECG_ITS ---
Measurements Intervals [place] Rate: 70 P: 19 [place]: 134 QRS: 38 QRSD: 106 T: 36 QT: 384 QTc: 415 Interpretive Statements SINUS RHYTHM WITH SINUS ARRHYTHMIA DELAYED PRECORDIAL R/S TRANSITION BORDERLINE ECG Electronically Signed On 05-11-2021 19:44:41 DETAIL TECHNICIAN by Brice Lawrence D.O.
[2021-05-11 18:10] LABS: Basophils Absolute Auto 0.01 K/mm3 (0.00-0.10); Basophils Percent Auto 0.1 % (0.0-1.0); Eosinophils Absolute Auto 0.18 K/mm3 (0.02-0.50); Eosinophils Percent Auto 2.6 % (1.0-6.0); Hematocrit 40.5 % (35.0-49.0); Hemoglobin 13.7 g/dL (12.0-15.0); Immature Granulocyte Absolute 0.03 K/mm3 (0.00-0.00); Immature Granulocyte Percent A 0.4 % (0.0-0.0); Lymphocytes Absolute Auto 1.98 K/mm3 (1.10-4.50); Lymphocytes Percent Auto 28.8 % (18.0-42.0); Mean Corpuscular HGB Conc 33.8 g/dL (32.0-36.0); Mean Corpuscular Hemoglobin 30.1 pg (27.0-31.0); Mean Platelet Volume 9.4 fl (9.2-11.8); Monocytes Absolute Auto 0.64 K/mm3 (0.10-0.90); Monocytes Percent Auto 9.3 % (2.0-11.0); Neutrophils Percent Auto 58.8 % (50.0-70.0); Platelet Count Result 174 K/mm3 (150-420); Red Blood Count 4.55 M/mm3 (4.20-5.40); White Blood Count 6.9 K/mm3 (4.8-10.8)
[2021-05-11 18:24] LABS: Partial Thromboplastin Time 26.1 SEC (23.90-30.70); Prothrombin Time 10.7 Seconds (9.50-12.10)
[2021-05-11 18:31] LABS: Alanine Aminotransferase 73 U/L (14-59); Albumin Level 3.4 g/dL (3.4-5.0); Alkaline Phosphatase 97 U/L (46-116); Ammonia 10 umol/L (11-32); Anion Gap 5 mmol/L (8-16); Aspartate Amino Transferase 38 U/L (15-37); Bilirubin,Total 0.3 mg/dL (0.00-1.00); Blood Urea Nitrogen 8 mg/dL (7-18); Calcium 9.2 mg/dL (8.5-10.1); Carbon Dioxide 31 mmol/L (21-32); Chloride 104 mmol/L (98-108); Estimated CRCL calculation 72 ml/min; Estimated Glomerular Filt Rate > 60; Glucose 131 mg/dL (70-99); NT Pro B Type Natriuretic Pept 28 pg/mL (0-125); Osmolality Calculated 290 mOsm/kg (285-295); Potassium 3.9 mmol/L (3.5-5.1); Sodium 140 mmol/L (136-145); Troponin I 5.2 ng/L (0.00-60.4)
[2021-05-11 18:55] LABS: Thyroid Stimulating Hormone Reflex 1.28 u/IU/mL (0.36-3.74)
[2021-05-11 19:07] LABS: Add Urine Microscopic? NO; Appearance Urine Clear (Clear); Bilirubin Urine Negative (Negative); Blood Urine Negative (Negative); Color Urine Light Yellow (Yellow); Glucose Urine UA Negative (Negative); Ketones Urine Negative (Negative); Leukocyte Esterase Ur Negative LEU/UL (Negative); Nitrate Urine Negative (Negative); Protein Urine Negative (Negative); Urobilinogen Urine 0.2 mg/dL (0.2-1.0)
[2021-05-11 19:55] VITALS: BP 116/90; PULSE 63; RESP 20; TEMP 36.3; O2SAT 97
== END 2021-05-11 20:04 | disposition home or self-care (01) ==
PROVIDERS: Emergency Provider Emergency Medicine; PCP Nurse Practitioner Family
DX: R60.9 Edema, unspecified (principal)
CPT/HCPCS: 36415; 80053; 81003; 82140; 83880; 84443; 84484; 85025; 85380; 85610; 85730; 93005; 99283; 99284

== ENCOUNTER 2021-07-05 16:35 | Emergency (ER) | payer OTHER, SELFPAY ==
--- NOTE | 2021-07-05 16:50 | ED.HA ---
HPI - Headache General Chief Complaint: Headache Stated Complaint: headache/weakness right side Source: patient and RN notes reviewed Mode of arrival: ambulatory Limitations: no limitations History of Present Illness HPI Narrative: Patient states that she has a history of hemiplegic migraines. She has been having some weakness and her significant other states that sometimes she has some falls when she has these kind of migraines. She has not had 1 since August. She denies any change in her speech. She denies any significant difficulty with walking. MD elicited complaint: migraine Pertinent past history: migraines Onset (ago): hour(s) (2) Onset description: gradually Location: right Severity: similar to previous episodes Quality & Timing: throbbing, constant and similar to previous headaches Exacerbating factors: light and noise Relieving factors: nothing Context: occurred at rest Associated symptoms: nausea, photophobia and sensitivity to sound Treatments prior to arrival: none Related Data Home Medications Medication Instructions Recorded Confirmed prazosin 1 mg capsule 1 mg PO BID cap 05/04/21 05/11/21 dicyclomine 10 mg PO QID PRN 05/11/21 05/11/21 pantoprazole 40 mg PO DAILY 05/11/21 05/11/21 trazodone 150 mg PO HS PRN 05/11/21 05/11/21 Allergies Allergy/AdvReac Type Severity Reaction Status Date / Time naproxen Allergy Unknown Verified 06/01/21 10:48 Penicillins Allergy Hives Verified 06/01/21 10:48 Sulfa (Sulfonamide Allergy Hives Verified 06/01/21 10:48 Antibiotics) Review of Systems Review of Systems: All systems reviewed & are unremarkable except as noted in HPI and below PMFSH Past Medical History Medical History (Updated 07/05/21 @ 17:29 by Melchor Santizo MD) Acute wrist pain Anxiety Benign hypertension Cervical endometriosis Depression Kienbock's disease Left wrist pain Migraines PCOS (polycystic ovarian syndrome) PTSD (post-traumatic stress disorder) Sinus tachycardia Skin lesion SVT (supraventricular tachycardia) Surgical History Surgical History H/O left wrist surgery H/O total hysterectomy History of cholecystectomy History of removal of ovarian cyst Family History Family History Other No significant family history Social History Social History Smoking status: Never smoker Alcohol intake: current Alcohol use details: social Substance use: never Substance use type: does not use Additional living arrangements comments: Boyfriend Additional occupation/education comments: EMT Gender identity (if verbalized by the patient): Female Exam Const: General: healthy appearing, no acute distress and alert Nutritional Appearance: obese morbidly obese Orientation/consciousness: patient oriented x3 Other: female nurse in room during examination. HENMT: Head: normal to inspection Ears: external ears normal and TM's normal bilaterally General nose exam: Normal external nose present Face and sinus: normal facial exam Mouth: Yes Normal oral and palatal mucosa present and Yes lip normal Eyes: Conjunctivae: conjunctivae normal Pupils: Equal, round and reactive pupils present EOM: EOMs intact bilaterally Neck: Neck: normal visual inspection and no meningeal signs Resp: Effort & Inspection: normal respiratory effort Auscultation: clear to auscultation bilaterally Cardio: Rate: regular rate Rhythm: regular rhythm GI: GI Palp: Yes Soft to palpation and No Tenderness to palpation present (GI) Auscultation: normal bowel sounds Back/Spine/Pelvis: Cervical Spine: cervical ROM normal Thoracic/Lumbar Spine: thoraco-lumbar ROM normal Skin: General skin exam: normal color Rashes: no rashes Neuro: General: patient oriented x3, moves all extremities, no meningeal signs, no focal motor de
[2021-07-05 16:53] VITALS: BP 128/87; PULSE 64; RESP 16; TEMP 36.3; O2SAT 98
--- NOTE | 2021-07-05 17:05 | PC.NURSE ---
Present during Dr. Santizo exam.
[2021-07-05] MEDS: ONDANSETRON INJ 4 MG/2 ML VIAL IV PUSH (17:14)
[2021-07-05] MEDS: KETOROLAC 30 MG/ML VIAL (*BKC) IV PUSH (17:15)
[2021-07-05] MEDS: diphenhydrAMINE HCl INJ 50 MG/ML VIAL 25 MG IV PUSH (17:16)
== END 2021-07-05 17:48 | disposition home or self-care (01) ==
PROVIDERS: Emergency Provider Emergency Medicine; PCP Nurse Practitioner Family
DX: G43.909 Migraine, unspecified, not intractable, without status migrainosus (principal)
CPT/HCPCS: 96374; 96375; 99283; 99284; J1200; J1885; J2405

== ENCOUNTER 2021-07-29 17:12 | Outpatient (CLI) | payer OTHER, SELFPAY ==
[2021-07-29 18:04] LABS: SARS-CoV-2 RNA PCR Negative (Negative)
== END 2021-07-29 17:13 | disposition home or self-care (01) ==
LOC: CHSLAB 17:14
PROVIDERS: PCP Physician Assistant; Visit Provider Nurse Practitioner Family
DX: R52 Pain, unspecified (principal); Z20.822 Contact with and (suspected) exposure to COVID-19
CPT/HCPCS: C9803; U0003; U0005